=== PATIENT | male | born 1965 | race Caucasian/White ===

== ENCOUNTER 2024-04-01 19:16 | Emergency (ER) | payer SELFPAY ==
[2024-04-01 19:59] LABS: BASOPHILS ABSOLUTE AUTO 0.06 K/uL (0.00-0.10); BASOPHILS PERCENT AUTO 0.7 % (0.1-1.3); EOSINOPHILS ABSOLUTE AUTO 0.34 K/uL (0.00-0.40); EOSINOPHILS PERCENT AUTO 4.1 % (0.0-5.4); HEMATOCRIT 44.6 % (38.4-49.7); HEMOGLOBIN 15.5 g/dL (12.9-16.9); IMMATURE GRAN ABSOLUTE AUTO 0.02 K/uL (0.00-0.23); IMMATURE GRAN PERCENT AUTO 0.2 % (0.0-0.7); LYMPHOCYTES ABSOLUTE AUTO 2.52 K/uL (0.8-3.3); LYMPHOCYTES PERCENT AUTO 30.3 % (11.4-47.7); MEAN CORPUSCULAR HGB CONC 34.8 g/dL (31.6-35.5); MEAN CORPUSCULAR VOLUME 86.3 fL (81.4-99.0); MONOCYTES ABSOLUTE AUTO 0.53 K/uL (0.20-0.90); MONOCYTES PERCENT AUTO 6.4 % (3.3-12.6); NEUTROPHILS ABSOLUTE AUTO 4.85 K/uL (1.0-7.6); NEUTROPHILS PERCENT AUTO 58.3 % (40.0-78.1); PLATELET COUNT,PLT 201 K/uL (130-375); RED BLOOD CELL COUNT 5.17 M/uL (4.14-5.76); WHITE BLOOD CELL COUNT,WBC 8.3 K/uL (3.2-11.0)
[2024-04-01 20:03] LABS: ANION GAP 10.5 mmol/L (5.0-14.0); CALCIUM 9.8 mg/dL (8.5-10.1); CREATININE 1.2 mg/dL (0.8-1.3); EST CRCL DRUG DOSING (CG) 69.72 mL/min
[2024-04-01 20:05] LABS: PROTHROMBIN TIME 10.4 sec (9.2-10.6)
[2024-04-01] MEDS: Sodium Chloride 0.9% 10 ML Syringe FLUSH ONE (20:25)
[2024-04-01] MEDS: Sodium Chloride 0.9% 100 ML IV ONE (20:25)
[2024-04-01] MEDS: Iopamidol 755 Mg/ML 100 ML Bottle IV ONE (20:25)
[2024-04-01] MEDS: Clopidogrel 75 MG Tab PO ONE (21:15)
[2024-04-01] MEDS: Rosuvastatin 10 MG Tab PO ONE (21:20)
== END 2024-04-01 21:46 | disposition home or self-care (01) ==
LOC: JP.ED 19:16
DX: G45.9 Transient cerebral ischemic attack, unspecified (principal); Z79.82 Long term (current) use of aspirin; Z79.84 Long term (current) use of oral hypoglycemic drugs; Z79.899 Other long term (current) drug therapy
CPT/HCPCS: 36415; 70450; 70496; 70498; 80048; 82947; 85025; 85610; 93005; 99284; A9270; J3490; Q9967; 93010